=== PATIENT | female | born 1990 | race Caucasian/White ===

== ENCOUNTER 2023-12-14 01:41 | Emergency (ER) | payer SELFPAY ==
[~2023-12-14] VITALS: Ht 154.9 cm; Wt 45.4 kg
[2023-12-14] MEDS ORDERED: HYDROCODONE/APAP 5/325MG TABLET ONE (02:32)
[2023-12-14] MEDS: HYDROCODONE/APAP 5/325MG TABLET PO ONE (02:35)
[2023-12-14 02:54] LABS: PREGNANCY TEST URINE QUAL NEGATIVE (NEGATIVE)
[2023-12-14 03:59] VITALS: TEMP 98.1
[2023-12-14 05:54] VITALS: BP 121/71; O2SAT 99
== END 2023-12-14 05:54 | disposition home or self-care (01) ==
LOC: ER 01:45
DX: S33.8XXA Sprain of other parts of lumbar spine and pelvis, initial encounter (principal); Y08.89XA Assault by other specified means, initial encounter; Y93.89 Activity, other specified; Y92.89 Other specified places as the place of occurrence of the external cause; Y99.8 Other external cause status
CPT/HCPCS: 72220-TC; 84703-TC